=== PATIENT | male | born 1990 | race African-American/Black ===

== ENCOUNTER → 2016-08-05 14:00 | Emergency (ER) | payer SELFPAY ==
[~2016-08-05 14:00] MED LIST: BACTRIM DS TABL1 TA1 PO; FAMOTIDINE PO; FLEXERIL10 MG PO; IBUPROFEN800 MG PO; MEDROL4 MG/DOSE- PO; NAPROSYN500 MG PO; NO MEDICATIONS; VICODIN 5/1 TAB 5/50 PO
== END | disposition left against medical advice (07) ==
LOC: CED 14:00
DX: Z53.21 Procedure and treatment not carried out due to patient leaving prior to being seen by health care provider (principal)